=== PATIENT | male | born 1975 | race Caucasian/White ===

== ENCOUNTER 2021-05-21 17:12 | Emergency (ER) | payer MEDICAID ==
[~2021-05-21] VITALS: Ht 190.5 cm; Wt 65.8 kg
[2021-05-21 17:25] VITALS: BP 141/89
[2021-05-21] MEDS ORDERED: SULF1TAB48 PO (18:13)
[2021-05-21] MEDS ORDERED: CEPH500T PO (18:13)
--- NOTE | 2021-05-21 18:46 | NUR ---
Patient discharged to home in stable condition. Written and verbal after care instructions given. Patient verbalizes understanding of instruction.
== END 2021-05-21 18:46 | disposition home or self-care (01) ==
LOC: ER 17:24
DX: S99.821A Other specified injuries of right foot, initial encounter (principal); L03.031 Cellulitis of right toe; L08.9 Local infection of the skin and subcutaneous tissue, unspecified; X58.XXXA Exposure to other specified factors, initial encounter; Y93.89 Activity, other specified; Y92.89 Other specified places as the place of occurrence of the external cause; Y99.8 Other external cause status